=== PATIENT | female | born 1970 | race Caucasian/White ===

== ENCOUNTER 2019-07-20 21:06 | Emergency (ER) | payer OTHER ==
[~2019-07-20] VITALS: Ht 167.6 cm; Wt 75.7 kg
[2019-07-20 21:10] VITALS: Ht 167.6 cm; Wt 75.7 kg
[2019-07-20 22:35] VITALS: BP 130/61
== END 2019-07-20 22:35 | disposition home or self-care (01) ==
LOC: ED 21:06
DX: S43.401A Unspecified sprain of right shoulder joint, initial encounter (principal); X50.0XXA Overexertion from strenuous movement or load, initial encounter; Y93.B9 Activity, other involving muscle strengthening exercises; Y92.89 Other specified places as the place of occurrence of the external cause; Y99.8 Other external cause status